=== PATIENT | male | born 1950 | race Caucasian/White ===

== ENCOUNTER 2019-10-25 10:10 | Outpatient (CLI) | payer MEDICARE, SELFPAY ==
[2019-10-25 10:25] LABS: Basophils Percent Auto 0.5 % (0.2-1.2); Eosinophils Absolute Auto 0.1 K/mm3 (0-0.3); Eosinophils Percent Auto 3.8 % (0-4.4); Hematocrit 38.9 % (42.0-52.0); Immature Granulocyte Absolute 0.01 K/mm3 (0.00-0.031); Immature Granulocyte Percent A 0.3 % (0-0.5); Lymphocytes Absolute Auto 1.22 K/mm3 (0.9-3.2); Lymphocytes Percent Auto 33.4 % (18.3-44.2); Mean Corpuscular HGB Conc 33.4 g/dl (32-36); Mean Corpuscular Hemoglobin 35.4 pg (26-34); Mean Platelet Volume 10.3 fl (7.4-10.4); Monocytes Absolute Auto 0.5 K/mm3 (0.1-0.6); Neutrophils Absolute Auto 1.8 K/mm3 (1.3-6.7); Platelet Count Result 222 k/mm3 (150-375); Red Blood Count 3.67 M/mm3 (4.6-6.20); Red Cell Distribution Width 13.2 % (11.5-14.5); White Blood Count 3.7 K/mm3 (4.5-10.0)
[2019-10-25 14:46] LABS: Alanine Aminotransferase 21 U/L (4-50); Albumin Level 4.9 g/dL (3.5-5.1); Alkaline Phosphatase 61 U/L (38-126); Aspartate Amino Transferase 34 U/L (17-59); Bilirubin,Total 0.9 mg/dL (0.2-1.3); Blood Urea Nitrogen 16 mg/dL (9-20); Calcium 9.9 mg/dL (8.4-10.2); Carbon Dioxide 27 mmol/L (22-30); Chloride 104 mmol/L (98-107); Estimated Glomerular Filt Rate > 60; Glucose 102 mg/dL (75-110); Potassium 4.2 mmol/L (3.4-5.0); Sodium 138 mmol/L (137-145)
== END 2019-10-25 10:11 | disposition home or self-care (01) ==
PROVIDERS: Visit Provider Internal Medicine Hematology & Oncology
DX: C81.11 Nodular sclerosis Hodgkin lymphoma, lymph nodes of head, face, and neck (principal)
CPT/HCPCS: 36415; 80053; 82728; 85025

== ENCOUNTER 2019-10-28 07:52 | Outpatient (CLI) | payer MEDICARE, SELFPAY ==
--- NOTE | ~2019-10-28 | CT_ITS ---
EXAMINATION: CT chest abdomen pelvis w con EXAM DATE: 10/28/2019 08:28 INDICATION: Hodgkin's lymphoma follow-up. TECHNIQUE: Spiral CT of the chest, abdomen and pelvis was performed following intravenous injection o f 100 mL Omnipaque 350. Axial, coronal and sagittal images were reviewed. Coronal maximum intensity pixel images of chest reviewed. The dose-length product (DLP) for this examination was 717.52 mGy-c m. The exposure was tailored according to patient size (auto mA exposure control), and iterative rec onstruction (ASIR) was used as additional dose reduction technique. Comparison is made to prior exami nation from 04/23/2019. FINDINGS: CHEST: The lungs are clear. There are no pleural or pericardial effusions. Tracheobronchial tree is patent. There is no mediastinal, hilar or axillary lymphadenopathy. There is no pneumothorax. Heart normal in size. ABDOMEN PELVIS: The liver, spleen, adrenal glands and pancreas are unremarkable. Gallbladder is unre markable. No biliary obstruction. There is moderate chronic left renal atrophy. Portal and splenic v eins are patent. Kidneys enhance symmetrically. There is no hydronephrosis. There is mild prostato megaly. The bladder is unremarkable. There is no retroperitoneal or pelvic lymphadenopathy. There is mild scattered arteriosclerotic disease. The appendix is normal. The stomach and small bowel are unremarkable. There is moderate descending a nd sigmoid colonic diverticulosis. There is no adjacent inflammatory change to suggest diverticuliti s. No free intraperitoneal gas. The bones are unremarkable. IMPRESSION: 1. No evidence of thoracic, abdomen or pelvis lymphadenopathy. 2. Chronic left renal atrophy. 3. Moderate colonic diverticulosis. 4. Mild prostatomegaly. Reviewed, dictated and finalized at location A.
== END 2019-10-28 07:53 | disposition home or self-care (01) ==
PROVIDERS: Visit Provider Internal Medicine Hematology & Oncology
DX: C81.11 Nodular sclerosis Hodgkin lymphoma, lymph nodes of head, face, and neck (principal); N26.1 Atrophy of kidney (terminal); K57.90 Diverticulosis of intestine, part unspecified, without perforation or abscess without bleeding; N40.0 Benign prostatic hyperplasia without lower urinary tract symptoms
CPT/HCPCS: 71260; 74177; Q9967

== ENCOUNTER 2020-04-30 09:11 | Outpatient (CLI) | payer MEDICARE, SELFPAY ==
[2020-04-30 09:31] LABS: Basophils Percent Auto 0.8 % (0.2-1.2); Eosinophils Absolute Auto 0.2 K/mm3 (0-0.3); Eosinophils Percent Auto 4.7 % (0-4.4); Hematocrit 37.7 % (42.0-52.0); Lymphocytes Absolute Auto 1.34 K/mm3 (0.9-3.2); Lymphocytes Percent Auto 36.7 % (18.3-44.2); Mean Corpuscular HGB Conc 34.5 g/dl (32-36); Mean Corpuscular Hemoglobin 36.9 pg (26-34); Mean Corpuscular Volume 107.1 fl (80-100); Mean Platelet Volume 10.3 fl (7.4-10.4); Monocytes Absolute Auto 0.6 K/mm3 (0.1-0.6); Monocytes Percent Auto 15.3 % (2.6-8.5); Neutrophils Absolute Auto 1.6 K/mm3 (1.3-6.7); Neutrophils Percent Auto 42.5 % (45.5-73.1); Platelet Count Result 220 k/mm3 (150-375); Red Blood Count 3.52 M/mm3 (4.6-6.20); Red Cell Distribution Width 13.1 % (11.5-14.5); White Blood Count 3.7 K/mm3 (4.5-10.0)
[2020-04-30 12:25] LABS: Alanine Aminotransferase 24 U/L (4-50); Albumin Level 4.3 g/dL (3.5-5.1); Alkaline Phosphatase 65 U/L (38-126); Anion Gap 9 mmol/L (8-16); Aspartate Amino Transferase 33 U/L (17-59); Bilirubin,Total 0.8 mg/dL (0.2-1.3); Blood Urea Nitrogen 15 mg/dL (9-20); Calcium 9.5 mg/dL (8.4-10.2); Carbon Dioxide 26 mmol/L (22-30); Chloride 105 mmol/L (98-107); Estimated Glomerular Filt Rate > 60; Glucose 106 mg/dL (75-110); Lactate Dehydrogenase 439 U/L (313-618); Potassium 4.4 mmol/L (3.4-5.0); Sodium 140 mmol/L (137-145)
== END 2020-04-30 09:12 | disposition home or self-care (01) ==
LOC: ANHLAB 09:12
PROVIDERS: Visit Provider Internal Medicine Hematology & Oncology
DX: C81.11 Nodular sclerosis Hodgkin lymphoma, lymph nodes of head, face, and neck (principal)
CPT/HCPCS: 36415; 80053; 82728; 83615; 85025

== ENCOUNTER 2020-10-23 09:28 | Outpatient (CLI) | payer MEDICARE, SELFPAY ==
[2020-10-23 09:45] LABS: Basophils Percent Auto 0.5 % (0.2-1.2); Eosinophils Absolute Auto 0.2 K/mm3 (0-0.3); Eosinophils Percent Auto 4.2 % (0-4.4); Hemoglobin 7.9 g/dL (14.0-18.0); Lymphocytes Absolute Auto 1.03 K/mm3 (0.9-3.2); Lymphocytes Percent Auto 27.3 % (18.3-44.2); Mean Corpuscular HGB Conc 34.3 g/dl (32-36); Mean Corpuscular Hemoglobin 38.5 pg (26-34); Mean Corpuscular Volume 112.2 fl (80-100); Mean Platelet Volume 10.9 fl (7.4-10.4); Monocytes Absolute Auto 0.5 K/mm3 (0.1-0.6); Monocytes Percent Auto 12.5 % (2.6-8.5); Neutrophils Absolute Auto 2.1 K/mm3 (1.3-6.7); Neutrophils Percent Auto 55.5 % (45.5-73.1); Platelet Count Result 218 k/mm3 (150-375); Red Blood Count 2.05 M/mm3 (4.6-6.20); Red Cell Distribution Width 14.2 % (11.5-14.5); White Blood Count 3.8 K/mm3 (4.5-10.0)
[2020-10-23 12:20] LABS: Iron 246 ug/dL (49-181)
[2020-10-23 12:28] LABS: Alanine Aminotransferase 22 U/L (4-50); Albumin Level 4.2 g/dL (3.5-5.1); Alkaline Phosphatase 63 U/L (38-126); Anion Gap 9 mmol/L (8-16); Aspartate Amino Transferase 27 U/L (17-59); Bilirubin,Total 0.9 mg/dL (0.2-1.3); Blood Urea Nitrogen 15 mg/dL (9-20); Calcium 9.3 mg/dL (8.4-10.2); Carbon Dioxide 26 mmol/L (22-30); Chloride 106 mmol/L (98-107); Estimated Glomerular Filt Rate > 60; Glucose 119 mg/dL (75-110); Sodium 141 mmol/L (137-145)
[2020-10-23 12:31] LABS: Percent Iron Saturation 95 % (20-50)
== END 2020-10-23 09:29 | disposition home or self-care (01) ==
LOC: ANHLAB 09:34
PROVIDERS: Visit Provider Internal Medicine Hematology & Oncology
DX: C81.11 Nodular sclerosis Hodgkin lymphoma, lymph nodes of head, face, and neck (principal)
CPT/HCPCS: 36415; 80053; 82728; 83540; 83550; 85025

== ENCOUNTER 2020-10-30 09:34 | Outpatient (CLI) | payer MEDICARE, SELFPAY ==
[2020-10-30 10:04] LABS: Basophils Percent Auto 0.3 % (0.2-1.2); Eosinophils Percent Auto 0.8 % (0-4.4); Hematocrit 21.3 % (42.0-52.0); Hemoglobin 7.5 g/dL (14.0-18.0); Immature Granulocyte Absolute 0.03 K/mm3 (0.00-0.031); Immature Granulocyte Percent A 0.8 % (0-0.5); Lymphocytes Absolute Auto 0.58 K/mm3 (0.9-3.2); Lymphocytes Percent Auto 14.8 % (18.3-44.2); Mean Corpuscular HGB Conc 35.2 g/dl (32-36); Mean Corpuscular Hemoglobin 39.9 pg (26-34); Mean Corpuscular Volume 113.3 fl (80-100); Mean Platelet Volume 10.7 fl (7.4-10.4); Monocytes Absolute Auto 0.4 K/mm3 (0.1-0.6); Monocytes Percent Auto 11.2 % (2.6-8.5); Neutrophils Absolute Auto 2.8 K/mm3 (1.3-6.7); Neutrophils Percent Auto 72.1 % (45.5-73.1); Platelet Count Result 213 k/mm3 (150-375); Red Blood Count 1.88 M/mm3 (4.6-6.20); Red Cell Distribution Width 14.5 % (11.5-14.5); Reticulocyte Hemoglobin Conten 44.4 pg (28.2-35.7); Reticulocyte Percent 0.69 % (0.7-4.3); Reticulocytes Absolute 0.01 B/L (32.2-175.7); White Blood Count 3.9 K/mm3 (4.5-10.0)
[2020-10-30 15:08] LABS: Iron 242 ug/dL (49-181)
[2020-10-30 15:11] LABS: Alanine Aminotransferase 31 U/L (4-50); Albumin Level 4.3 g/dL (3.5-5.1); Alkaline Phosphatase 68 U/L (38-126); Anion Gap 9 mmol/L (8-16); Aspartate Amino Transferase 37 U/L (17-59); Bilirubin,Total 0.9 mg/dL (0.2-1.3); Blood Urea Nitrogen 15 mg/dL (9-20); Calcium 9.9 mg/dL (8.4-10.2); Carbon Dioxide 26 mmol/L (22-30); Chloride 105 mmol/L (98-107); Estimated Glomerular Filt Rate > 60; Glucose 97 mg/dL (75-110); Lactate Dehydrogenase 482 U/L (313-618); Potassium 4.4 mmol/L (3.4-5.0); Sodium 140 mmol/L (137-145)
[2020-10-30 15:18] LABS: Percent Iron Saturation 87 % (20-50)
[2020-10-30 16:09] LABS: Folic Acid 11.6 ng/mL (2.76->20)
[2020-11-03 13:22] LABS: Soluble Transferrin Receptor 0.45 mg/L (0.76-1.76)
== END 2020-10-30 09:35 | disposition home or self-care (01) ==
LOC: ANHLAB 09:35
PROVIDERS: Visit Provider Internal Medicine Hematology & Oncology
DX: D64.9 Anemia, unspecified (principal); C81.11 Nodular sclerosis Hodgkin lymphoma, lymph nodes of head, face, and neck
CPT/HCPCS: 36415; 80053; 82607; 82728; 82746; 83540; 83550; 83615; 84238; 85025; 85046

== ENCOUNTER 2020-11-05 09:07 | Outpatient (CLI) | payer MEDICARE, SELFPAY ==
--- NOTE | ~2020-11-05 | PE_ITS ---
EXAMINATION: PET skull to mid thigh DATE: 11/05/2020 10:58 INDICATION: Hodgkin's lymphoma TECHNIQUE: Blood glucose level was 112 mg/dL. 10.069 mCi of 18-fluorodeoxyglucose (18-FDG) was admini stered i.v. Low dose computed tomography (CT) images were acquired from the base of the brain to the proximal thighs for attenuation correction and anatomic localization. Positron emission tomography (P ET) images were acquired in the same distribution beginning 76 minutes after injection. Images includ ing fused PET/CT images were reconstructed in axial, coronal, and sagittal planes. Automated exposure control technique was employed. The dose-length product was 992.27mGy-cm. COMPARISON: CT chest, abdomen and pelvis dated 10/28/2019, CT neck, chest, abdomen and pelvis dated 09/20 and PET/CT dated 10/10/2017 FINDINGS: Head/neck: There is symmetric increased activity in the oral cavity, palatine tonsils, parotid glands, submandi bular glands, laryngeal muscles and ocular muscles without CT correlate, likely physiologic. Chronic mildly enlarged left mid jugular chain lymph node measuring 2.0 x 1.2 cm which is without evident FDG uptake and unchanged since 10/08/2018, decreased from 2.3 x 1.6 cm on study dated 10/10/2017. No other pathologically enlarged cervical lymphadenopathy or suspicious foci of increased FDG uptake in the v isualized head or neck. Chest: Lungs are clear with no suspicious pulmonary nodules, pneumonia or other pulmonary infiltrates, pulmo nary edema or pleural effusion. Heart size is normal. No pericardial effusion. Thoracic aorta is norm al in caliber. No pathologically enlarged or FDG avid thoracic lymphadenopathy. Abdomen/pelvis/proximal thighs: Physiologic renal accumulation and excretion of FDG activity in the kidneys, bladder and along portio ns of ureters. There is moderate atrophy of the left kidney. Subtle decreased FDG uptake in the left hepatic lobe corresponding to a subtle 5.3 x 4.2 cm hypodense mass with peripheral puddling of contra st on prior CT studies dating back to 10/08/2018 CONSISTENT with a cavernous hemangioma. Otherwise nor mal degree and heterogenous pattern of increased uptake throughout the liver without radiologic corre late or dominant FDG avid lesion. The gallbladder, pancreas, spleen and bilateral adrenal glands are normal. Normal appendix. There is moderate colonic diverticulosis with a sigmoid predominance. There is no adjacent inflammatory change to suggest diverticulitis. Mild uptake scattered throughout the b owels without radiologic correlate, also likely physiologic. Prostatomegaly. No other abnormal foci o f increased FDG uptake or pathologically enlarged lymphadenopathy in the abdomen, pelvis or proximal thighs. Musculoskeletal: There is mild increased uptake in the L5 vertebral body with maximal SUV of 4.0 without radiologic co rrelate. No suspicious lytic, blastic or other abnormal FDG avid bone lesions identified. IMPRESSION: 1. Bilateral mildly increased FDG uptake in the L5 vertebral body without evident associated lytic or blastic bone lesion. Would consider pre and postcontrast lumbar spine MR for further evaluation. 2. No FDG uptake or interval change since 2019 in a 2.0 x 1.2 cm mid left jugular chain lymph node co nsistent with treated lymphoma which measured 5.5 x 3.1 cm in corresponding dimensions in 2017 at the time of the biopsy proven diagnosis of Hodgkin lymphoma Reviewed, dictated and finalized at location A. IMPRESSION: 1. Bilateral mildly increased FDG uptake in the L5 vertebral body without evide nt associated lytic or blastic bone lesion. Would consider pre and postcontrast lumbar spine MR for further evaluation. 2. No FDG uptake or interval change since 2018 in a 2.0 x 1.2 cm mid
[2020-11-05 09:27] LABS: Glucose Point of Care 112 mg/dl (65-105)
== END 2020-11-05 09:08 | disposition home or self-care (01) ==
PROVIDERS: Visit Provider Internal Medicine Hematology & Oncology
DX: C81.11 Nodular sclerosis Hodgkin lymphoma, lymph nodes of head, face, and neck (principal)
CPT/HCPCS: 78815; 82948; A9552

== ENCOUNTER 2020-11-10 07:30 | Outpatient (RCR) | payer MEDICARE, SELFPAY ==
[2020-11-10] VITALS (9 sets, daily range): BP systolic 99–130; BP diastolic 60–68; PULSE 60–71; RESP 16; TEMP 36.3–36.6; O2SAT 99–100
[2020-11-10] MEDS: ACETAMINOPHEN 325 MG TABLET 650 MG PO (08:44)
[2020-11-10] MEDS: diphenhydrAMINE HCl CAP 25 MG CAPSULE PO (08:44)
[2020-11-10] MEDS: SODIUM CHLORIDE 0.9% IV 250 ML 30 ML IV CONT (08:46)
[2020-11-10] MEDS: FUROSEMIDE INJ 40 MG/4 ML VIAL 20 MG IV PUSH (11:39)
== END 2021-02-08 23:59 | disposition home or self-care (01) ==
LOC: ANHCPCTRAN 07:30
PROVIDERS: PCP Internal Medicine; Visit Provider Internal Medicine Hematology & Oncology
DX: C81.11 Nodular sclerosis Hodgkin lymphoma, lymph nodes of head, face, and neck (principal)
CPT/HCPCS: 36415; 36430; 86850; 86900; 86901; 86920; 96374; A9270; J1940; J7050; P9016

== ENCOUNTER 2020-11-16 15:43 | Outpatient (CLI) | payer MEDICARE, SELFPAY ==
--- NOTE | ~2020-11-16 | MR_ITS ---
EXAMINATION: MR lumbar spine wo/w con DATE: 11/16/2020 16:34 INDICATION: Low back pain. Hodgkin's disease. TECHNIQUE: Magnetic resonance imaging (MRI) of the lumbar spine was performed without and with 18 mL MultiHance intravenous contrast. Sequences included sagittal T2-weighted FSE, sagittal T2-weighted FS FSE, and sagittal and axial T1-weighted FSE. Postcontrast sequences included axial T2-weighted FSE a nd axial and sagittal T1-weighted FS FSE. COMPARISON: PET CT 11/05/2020, CT chest, abdomen, and pelvis 10/28/2019 FINDINGS: There is 4 mm anterolisthesis of L5 on S1. Vertebral body heights are normal. There is a he mangioma in L1 vertebral body. There is heterogeneous fat replacement of the bone marrow. There is mo derately decreased disc height at L3-L4 and L4-L5. The distal spinal cord signal intensity is normal. The conus medullaris is at L1-L2. The following disc levels are specifically discussed: L1-L2: The disc does not extend beyond the endplate margin. There is mild bilateral facet joint osteo arthritis. There is no neural foraminal stenosis. There is no central canal stenosis. L2-L3: The disc is mildly bulging. There is mild bilateral facet joint osteoarthritis. There is mild left neural foraminal stenosis. There is no central canal stenosis. L3-L4: The disc is bulging and has an annular fissure. There is mild bilateral facet joint osteoarthr itis. There is mild bilateral neural foraminal stenosis. There is mild central canal stenosis. L4-L5: The disc is bulging and has an annular fissure. There is moderate bilateral facet joint osteoa rthritis. There is moderate bilateral neural foraminal stenosis. There is mild central canal stenosis . L5-S1: The disc does not extend beyond the endplate margin. There is severe bilateral facet joint ost eoarthritis. There is mild left neural foraminal stenosis. There is no central canal stenosis. IMPRESSION: 1. No evidence of malignancy. 2. Moderate lumbar spondylosis. Reviewed, dictated and finalized at location A.
== END 2020-11-16 15:44 | disposition home or self-care (01) ==
PROVIDERS: PCP Internal Medicine; Visit Provider Internal Medicine Hematology & Oncology
DX: C81.11 Nodular sclerosis Hodgkin lymphoma, lymph nodes of head, face, and neck (principal); M47.896 Other spondylosis, lumbar region
CPT/HCPCS: 72158; A9577

== ENCOUNTER 2021-01-22 08:50 | Emergency (ER) | payer MEDICARE, SELFPAY ==
[2021-01-22] VITALS (11 sets, daily range): BP systolic 104–124; BP diastolic 50–71; PULSE 53–66; RESP 12–20; TEMP 36.3–36.8; O2SAT 99–100
--- NOTE | 2021-01-22 09:07 | ED.GENADULT ---
HPI - General Adult General Chief complaint: Unspecified Stated complaint: NEEDS 2 UNITS OF BLOOD Time Seen by Provider: 01/22/21 09:04 Source: patient Mode of arrival: ambulatory Limitations: no limitations History of Present Illness HPI narrative: Patient is a 70-year-old male here for blood transfusion. Patient states that the outpatient transfusion center here at the hospital is currently understaffed and he was told that to go to the emergency room for blood transfusions. 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 Patient states that he had his hemoglobin checked yesterday at another facility, his heme/onc suggested he get transfusion today, 2 units of PRBC. Patient denies any chest pain, shortness of breath, abdominal pain, GI bleeding, fever or chills. Patient has no symptoms at this time. Related Data Home Medications Medication Instructions Recorded Confirmed Vitamin D3 1 tablet PO DAILY 11/09/20 11/09/20 milk thistle 01/22/21 turmeric 01/22/21 Allergies Allergy/AdvReac Type Severity Reaction Status Date / Time adhesive tape Allergy Mild Rash Verified 01/22/21 09:07 Review of Systems Review of Systems: All systems reviewed & are unremarkable except as noted in HPI and below Constitutional: Constitutional: Denies body ache(s), Denies chills, Denies excessive sweating, Denies fatigue, Denies fever(s), Denies headache(s), Denies lethargy, Denies malaise, Denies weakness and Denies weight loss Eyes: Eyes: Denies blurry vision, Denies change in vision and Denies loss of vision ENT: Denies dizziness, Denies ear discharge, Denies headache(s), Denies lip swelling, Denies epistaxis, Denies nasal congestion, Denies neck pain, Denies throat swelling and Denies tongue swelling Cardiovascular: Cardiovascular: Denies chest pain, Denies chest pain at rest, Denies chest pain with activity, Denies diaphoresis, Denies rapid heart rate, Denies edema, Denies irregular heart rhythm, Denies lightheadedness, Denies palpitations, Denies dyspnea and Denies dyspnea on exertion Respiratory: Respiratory: Denies chest congestion, Denies cough, Denies hemoptysis, Denies dyspnea and Denies dyspnea on exertion Gastrointestinal: Gastrointestinal: Denies abdominal pain, Denies melena, Denies hematochezia, Denies diarrhea, Denies nausea, Denies vomiting and Denies hematemesis Musculoskeletal: Musculoskeletal: Denies abnormal gait, Denies deformity, Denies joint swelling, Denies limited range of motion, Denies neck pain and Denies numbness Neurologic: Denies Abnormal speech present, Denies abnormal gait, Denies confusion, Denies dizziness, Denies headache(s), Denies focal weakness, Denies loss of vision, Denies numbness, Denies Other visual disturbances, Denies Sensory deficit (Neuro) and Denies weakness Psychiatric: Psychiatric: Denies confusion, Denies depression, Denies auditory hallucinations, Denies homicidal ideation and Denies suicidal ideation Endocrine: Endocrine: Denies cold intolerance, Denies excessive sweating, Denies fatigue, Denies heat intolerance and Denies palpitations Hematologic/Lymphatic: Hematologic/Lymphatic: Denies easy bleeding and Denies easy bruising Allergic/Immunologic: Allergic/Immunologic: Denies lip swelling, Denies throat swelling and Denies tongue swelling PMFSH Family History Family History Other Cerebrovascular accident Diabetes mellitus Hypertension Social History Social History Smoking status: Never smoker Alcohol intake: never Gender identity (if verbalized by the patient): Male Spiritual care concerns: No Comments Past medical history: Red cell aplasia Exam Const: General: cooperative, healthy appearing, comfortable, no acute distress, well developed, alert and awake; No confusion Orientation/consciousness
[2021-01-22 09:20] LABS: Basophils Percent Auto 0.7 % (0.2-1.2); Eosinophils Absolute Auto 0.3 K/mm3 (0-0.3); Immature Granulocyte Absolute 0.01 K/mm3 (0.00-0.031); Immature Granulocyte Percent A 0.2 % (0-0.5); Lymphocytes Absolute Auto 1.19 K/mm3 (0.9-3.2); Lymphocytes Percent Auto 28.4 % (18.3-44.2); Mean Corpuscular Hemoglobin 29.8 pg (26-34); Mean Platelet Volume 11.9 fl (7.4-10.4); Monocytes Absolute Auto 0.5 K/mm3 (0.1-0.6); Monocytes Percent Auto 12.6 % (2.6-8.5); Neutrophils Absolute Auto 2.2 K/mm3 (1.3-6.7); Neutrophils Percent Auto 52.1 % (45.5-73.1); Platelet Count Result 222 k/mm3 (150-375); Red Blood Count 2.15 M/mm3 (4.6-6.20); Red Cell Distribution Width 14.2 % (11.5-14.5); White Blood Count 4.2 K/mm3 (4.5-10.0)
[2021-01-22] MEDS: SODIUM CHLORIDE 0.9% IV 250 ML 30 ML IV CONT (09:20)
[2021-01-22 09:31] LABS: Anion Gap 8 mmol/L (8-16); Blood Urea Nitrogen 19 mg/dL (9-20); Calcium 9.9 mg/dL (8.4-10.2); Carbon Dioxide 22 mmol/L (22-30); Chloride 109 mmol/L (98-107); Estimated CRCL calculation 71 ml/min; Estimated Glomerular Filt Rate > 60; Glucose 112 mg/dL (65-110); Potassium 4.1 mmol/L (3.4-5.0); Sodium 139 mmol/L (137-145)
[2021-01-22 09:39] LABS: Hemoglobin 6.4 g/dL (14.0-18.0)
== END 2021-01-22 17:19 | disposition home or self-care (01) ==
PROVIDERS: Emergency Provider Emergency Medicine; PCP Internal Medicine
DX: D64.9 Anemia, unspecified (principal); D60.9 Acquired pure red cell aplasia, unspecified
CPT/HCPCS: 36415; 36430; 80048; 85025; 86850; 86900; 86901; 86920; 96360; 96361; 99285; J7050; P9016

== ENCOUNTER 2021-02-10 07:24 | Outpatient (RCR) | payer MEDICARE, SELFPAY ==
[2020-11-26 08:28] LABS: Hematocrit 19.1 % (42.0-52.0); Hemoglobin 6.4 g/dL (14.0-18.0)
[2020-11-26] MEDS: diphenhydrAMINE HCl CAP 25 MG CAPSULE PO (09:09)
[2020-11-26] MEDS: ACETAMINOPHEN 325 MG TABLET 650 MG PO (09:09)
[2020-11-26 09:40] VITALS: BP 110/61; PULSE 64; RESP 15; TEMP 36.5; O2SAT 99
[2020-11-26 09:55] VITALS: BP 104/55; PULSE 66; RESP 16; TEMP 36.3; O2SAT 100
[2020-11-26 10:55] VITALS: BP 104/60; PULSE 63; RESP 15; TEMP 36.3; O2SAT 98
[2020-11-26 11:55] VITALS: BP 98/63; PULSE 65; RESP 14; TEMP 36.2; O2SAT 99
[2020-11-26 12:55] VITALS: BP 110/60; PULSE 60; RESP 16; TEMP 36.4; O2SAT 100
[2020-11-26 13:05] VITALS: BP 110/60; PULSE 61; RESP 15; TEMP 36.4; O2SAT 100
[2020-12-08] VITALS (11 sets, daily range): BP systolic 102–133; BP diastolic 50–65; PULSE 59–66; RESP 14–18; TEMP 36–36.3; O2SAT 96–100
[2020-12-08 08:09] LABS: Hematocrit 18.9 % (42.0-52.0)
[2020-12-08 08:10] LABS: Hemoglobin 6.3 g/dL (14.0-18.0)
[2020-12-08] MEDS: diphenhydrAMINE HCl CAP 25 MG CAPSULE PO (08:24)
[2020-12-08] MEDS: ACETAMINOPHEN 325 MG TABLET 650 MG PO (08:24)
[2020-12-08] MEDS: SODIUM CHLORIDE 0.9% IV 250 ML 30 ML (08:25)
[2020-12-08] MEDS: FUROSEMIDE INJ 40 MG/4 ML VIAL 20 MG IV PUSH (12:15)
--- NOTE | 2020-12-08 15:36 | PC.NURSE ---
2 units of PRBC transfused with no signs of reaction noted. Benadryl and Tylenol given prior to starting of first unit of PRBC. VS remained stable throughout. Pt rec'd IV lasix between units, voided frequently without difficulty. IV d/c'd after transfusion complete. Discharged to home with .
[2021-01-08] VITALS (9 sets, daily range): BP systolic 103–120; BP diastolic 62–72; PULSE 55–66; RESP 16; TEMP 36.1–36.3; O2SAT 100
[2021-01-08] MEDS: diphenhydrAMINE HCl CAP 25 MG CAPSULE PO (08:25)
[2021-01-08] MEDS: ACETAMINOPHEN 325 MG TABLET 650 MG PO (08:25)
[2021-01-08 08:38] LABS: Hematocrit 15.9 % (42.0-52.0); Hemoglobin 5.3 g/dL (14.0-18.0)
[2021-01-08] MEDS: SODIUM CHLORIDE 0.9% IV 250 ML 30 ML IV CONT (08:55)
[2021-01-08] MEDS: FUROSEMIDE INJ 40 MG/4 ML VIAL 20 MG IV PUSH (11:31)
[2021-02-10] VITALS (11 sets, daily range): BP systolic 105–128; BP diastolic 56–68; PULSE 58–71; RESP 16–18; TEMP 35.9–36.4; O2SAT 98–100
[2021-02-10] MEDS: ACETAMINOPHEN 325 MG TABLET 650 MG PO (08:05)
[2021-02-10] MEDS: diphenhydrAMINE HCl CAP 25 MG CAPSULE PO (08:05)
--- NOTE | 2021-02-10 08:39 | PC.NURSE ---
Iv started to left forearm, flushes easily, good blood return present. blood consent forms signed with stated understanding. Blood transfusion initiated
[2021-02-10] MEDS: FUROSEMIDE INJ 40 MG/4 ML VIAL 20 MG IV PUSH (10:55)
--- NOTE | 2021-02-10 14:20 | PC.NURSE ---
2 units PRBC infused. Patient with no evidence of transfusion reaction. Handout instructions given, with verbalized understanding by patient and . PIV removed with catheter intact, dressing applied. Patient able to ambulate at time of DC with .
== END 2021-02-24 23:59 | disposition home or self-care (01) ==
LOC: ANHCPCTRAN 07:24
PROVIDERS: PCP Internal Medicine; Visit Provider Internal Medicine Hematology & Oncology
DX: C81.41 Lymphocyte-rich Hodgkin lymphoma, lymph nodes of head, face, and neck (principal)
CPT/HCPCS: 36415; 36430; 82274; 85014; 85018; 86850; 86900; 86901; 86920; 96374; A9270; J1940; J7050; P9016